=== PATIENT | female | born 1955 | race Caucasian/White ===

== ENCOUNTER 2016-10-21 12:55 | Emergency (ER) | payer OTHER ==
[~2016-10-21] VITALS: Ht 162.6 cm; Wt 59.0 kg
[~2016-10-21 12:55] MED LIST: ASPIRIN E.C.81 M2 PO; Ascorbic Acid PO; Milk Of Magnesia,MOM PO; Percocet 5/325,Endoc PO; THERAGRAN1 TABLET PO; VITAMIN D1000 INTUN PO
[2016-10-21 13:00] VITALS: BP 149/60
[2016-10-21] MEDS ORDERED: ROXICODONE5 MG PO (14:50)
== END 2016-10-21 15:06 | disposition home or self-care (01) ==
LOC: EME 12:55
DX: S82.142A Displaced bicondylar fracture of left tibia, initial encounter for closed fracture (principal); S70.312A Abrasion, left thigh, initial encounter; V19.9XXA Pedal cyclist (driver) (passenger) injured in unspecified traffic accident, initial encounter; Y93.55 Activity, bike riding
CPT/HCPCS: 73564; 73700; 99281; 99284